=== PATIENT | male | born 1985 | race Two or more races ===

== ENCOUNTER 2016-06-20 08:56 | Emergency (ER) | payer BC ==
[~2016-06-20] VITALS: Ht 167.6 cm; Wt 81.6 kg
[2016-06-20 09:30] VITALS: BP 162/89
[2016-06-20] MEDS ORDERED: DIPHTH,PERTUSS(ACELL),TET TOX 0.5 ML DISP.SYRIN. VAX IM ONE (10:15)
[2016-06-20] MEDS ORDERED: LIDOCAINE 1% / SOD BICARB 8.4% 20 ML VIAL. IJ ONE (10:15)
--- NOTE | 2016-06-20 10:36 | PHYS DOC ---
Past Medical History Past Medical History: No Pertinent History Past Surgical History: No Surgical History Alcohol Use: Occasionally Drug Use: None Adult General Chief Complaint Chief Complaint: LACERATION/AVULSION HPI HPI Patient is a 31 year old male who presents with right elbow laceration. Patient states he accidentally cut his right elbow on a door. Review of Systems Review of Systems Constitutional: Denies fever or chills [] Eyes: Denies change in visual acuity, redness, or eye pain [] Musculoskeletal: Denies back pain or joint pain [] Integument: Right elbow laceration Neurologic: Denies headache, focal weakness or sensory changes [] Endocrine: Denies polyuria or polydipsia [] Current Medications Current Medications Current Medications Medications (Trade) Dose Ordered Sig/Ziggy Start Time Stop Time Status Last Admin Dose Admin Diphtheria/ Tetanus/Acell Pertussis (Boostrix) 0.5 ml ONCE ONCE 06/20/16 10:15 06/20/16 10:16 DC 06/20/16 10:16 0.5 ML Lidocaine/Sodium Bicarbonate (Buffered Lidocaine 1%) 20 ml 1X ONCE 06/20/16 10:15 06/20/16 10:16 DC 06/20/16 10:15 20 ML Allergies Allergies Allergies Coded Allergies Type Severity Reaction Last Updated Verified No Known Drug Allergies 06/20/16 No Physical Exam Physical Exam Constitutional: Well developed, well nourished, no acute distress, non-toxic appearance. [] HENT: Normocephalic, atraumatic, bilateral external ears normal, oropharynx moist, no oral exudates, nose normal. [] Abdomen: Bowel sounds normal, soft, no tenderness, no masses, no pulsatile masses. [] Skin: Right dorsal elbow with a laceration approximately 2 cm long, there is no tendon involvement. Full range of motion to the right elbow. Adequate flexion and extension of the right elbow. Adequate plantar flexion and dorsiflexion of the right forearm. +2 right radial pulse. Cap refill less than 2 seconds the right upper extremity. Adequate medial radial and ulnar sensation to the right forearm. Back: No tenderness, no CVA tenderness. [] Extremities: No tenderness, no cyanosis, no clubbing, ROM intact, no edema. [] Neurologic: Alert and oriented X 3, normal motor function, normal sensory function, no focal deficits noted. [] Psychologic: Affect normal, judgement normal, mood normal. [] Current Patient Data Vital Signs Vital Signs Date Time Temp Pulse Resp B/P Pulse Ox O2 Delivery O2 Flow Rate FiO2 06/20/16 09:30 98.6 111 20 97 Room Air 98.6 EKG EKG [] Radiology/Procedures Radiology/Procedures Indication: Right elbow laceration Procedure: The patient was placed in the appropriate position and anesthesia around the laceration was lidocaine with epinephrine. The area was then cleaned with 20 mL of normal saline and Betadine. The laceration was closed with 4 interrupted sutures using 4. 0 Ethilon. The wound area was then dressed with Band-Aid Total repaired wound length: Approximately 2 cm long Other Items: None The patient tolerated the procedure well Complications: None Course & Med Decision Making Course & Med Decision Making Pertinent Labs and Imaging studies reviewed. (See chart for details) Patient is in the ED with right elbow laceration that was closed by me as noted in procedures. He is to come back to the ED in 7-10 days for suture removal. He was provided wound care instructions as well as return precautions. He was given tetanus in the ED. Dragon Disclaimer Dragon Disclaimer This electronic medical record was generated, in whole or in part, using a voice recognition dictation system. Departure Departure Impression: Primary Impression: Laceration of elbow, right Disposition: 01 HOME, SELF-CARE Condition: STABLE Referrals: NO PCP (PCP) Follow-up with your doctor or the emergency room in 7-10 days for suture removal Patient Instructions: Laceration Care, Adult Additional Instructions: You have right elbow laceration, keep it clean and dry. Apply Neosporin to it twice a day. You can shower. Leave laceration open if it's not draining. Come back to the ED follow-up with your doctor in 7-10 days for suture removal. Problem Qualifiers Primary Impression: Laceration of elbow, right Encounter type: initial encounter Qualified Code: S51.011A - Laceration without foreign body of right elbow, initial encounter ARACELI GODWIN DRIER Jun 20, 2016 10:36
== END 2016-06-20 10:42 | disposition home or self-care (01) ==
LOC: ER 08:56
DX: S51.011A Laceration without foreign body of right elbow, initial encounter (principal); W23.0XXA Caught, crushed, jammed, or pinched between moving objects, initial encounter; Y93.89 Activity, other specified; Y92.89 Other specified places as the place of occurrence of the external cause; Y99.8 Other external cause status
CPT/HCPCS: 12001; 90471; 90715; 99283-25

== ENCOUNTER 2016-09-09 10:23 | Emergency (ER) | payer BC ==
[2016-09-09 10:25] VITALS: BP 127/84
--- NOTE | 2016-09-09 11:17 | PHYS DOC ---
Past Medical History Past Medical History: Kidney Stone Past Surgical History: No Surgical History Alcohol Use: Occasionally Drug Use: None Adult General Chief Complaint Chief Complaint: UPPER EXTREMITY PAIN [facility] HPI Patient is a 31 year old male presents to the emergency department stating that he has having left shoulder and left upper back pain and discomfort. Patient states that he moves 10 pound equipment on a daily basis as well as a repetitive motion. He denies any trauma or injury to the arm. He states on Thursday he woke up with the arm being numb and tingly has not followed asleep. He states that he has had increased pain and discomfort since that time. He denies any numbness or tingling in his hand and wrist area.. Equal strength noted bilaterally. Peripheral pulses 2+ cap refill brisk less than 2 seconds. Review of Systems Review of Systems Constitutional: Denies fever or chills [] Eyes: Denies change in visual acuity, redness, or eye pain [] HENT: Denies nasal congestion or sore throat [] Respiratory: Denies cough or shortness of breath [] Cardiovascular: No additional information not addressed in HPI [] GI: Denies abdominal pain, nausea, vomiting, bloody stools or diarrhea [] : Denies dysuria or hematuria [] Musculoskeletal: Right upper back, right shoulder pain and discomfort Integument: Denies rash or skin lesions [] Neurologic: Denies headache, focal weakness or sensory changes [] Endocrine: Denies polyuria or polydipsia [] Allergies Allergies Allergies Coded Allergies Type Severity Reaction Last Updated Verified No Known Drug Allergies 06/20/16 No Physical Exam Physical Exam Constitutional: Well developed, well nourished, no acute distress, non-toxic appearance. [] HENT: Normocephalic, atraumatic, bilateral external ears normal, oropharynx moist, no oral exudates, nose normal. [] Eyes: PERRLA, EOMI, conjunctiva normal, no discharge. [] Neck: Normal range of motion, no tenderness, supple, no stridor. [] Cardiovascular:Heart rate regular rhythm, no murmur [] Lungs & Thorax: Bilateral breath sounds clear to auscultation [] Skin: Warm, dry, no erythema, no rash. [] Back: No tenderness Extremities: Trapezoid tenderness noted in the right upper back, tenderness noted at the right rotator cuff area into the chest. Patient with full range of motion of the right shoulder. Peripheral pulses 2+ cap refill brisk less than 2 seconds. Good sensation noted bilaterally., no cyanosis, no clubbing, ROM intact , no edema. [] Neurologic: Alert and oriented X 3, normal motor function, normal sensory function, no focal deficits noted. [] Psychologic: Affect normal, judgement normal, mood normal. [] Current Patient Data Vital Signs Vital Signs Date Time Temp Pulse Resp B/P (MAP) Pulse Ox O2 Delivery O2 Flow Rate FiO2 09/09/16 10:25 97.6 96 18 97 Room Air 97.6 EKG EKG [] Radiology/Procedures Radiology/Procedures [address] [id number] IMAGING REPORT Signed PATIENT: BRENDAN CAMARENA ACCOUNT: [id number] : 1985 LOCATION: ER AGE: 31 SEX: M EXAM STATUS: REG ER ORD. PHYSICIAN: ERNESTINE MOCK MD REASON: rt shoulder pain PROCEDURE: SHOULDER 2+V RIGHT Indication pain for a week. No history of trauma. Internally and externally rotated views of the right shoulder were obtained as well as a Y view. No bony abnormality is seen DICTATED and SIGNED BY: MITCHEL NUNO MD DATE: 09/09/16 1117 CC: ERNESTINE MOCK MD; RANDOLPH THORNE APRN; NO PCP ~ [][address] [id number] IMAGING REPORT Signed PATIENT: BRENDAN CAMARENA ACCOUNT: [id number] : 1985 LOCATION: ER AGE: 31 SEX: M EXAM STATUS: REG ER ORD. PHYSICIAN: ERNESTINE MOCK MD REASON: pain PROCEDURE: VENOUS UPPER EXTREMITY RIGHT INDICATION: Right arm pain. COMPARISON: None. TECHNIQUE: Grayscale, color and spectral doppler ultrasound images were obtained of the right upper extremity venous vasculature. RIGHT: No thrombus identified in the right IJ, subclavian, cephalic, basilic, axillary, radial or ulnar veins. IMPRESSION: 1. No thrombus identified in deep venous system of right upper extremity. DICTATED and SIGNED BY: MARYCRUZ THOMPSON MD DATE: 09/09/16 5547 CC: ERNESTINE MOCK MD; RANDOLPH THORNE APRN; NO PCP ~ Course & Med Decision Making Course & Med Decision Making Pertinent Labs and Imaging studies reviewed. (See chart for details) X-rays and venous Doppler on the right arm was negative. X-rays of the right shoulder was negative as well. Patient will be placed in a sling with recommendations to take the arm out of the sling 5-6 times a day to do active range of motion. Patient was recommended to use ibuprofen for pain and discomfort ice packs as needed. Patient will be provided with orthopedic name and number to follow up with. Since symptoms to return back to emergency department as been provided. Patient agrees with discharge instructions treatment regimens and follow-up recommendations. [] Dragon Disclaimer Dragon Disclaimer This electronic medical record was generated, in whole or in part, using a voice recognition dictation system. Departure Departure Impression: Primary Impression: Right shoulder pain Disposition: 01 HOME, SELF-CARE Condition: STABLE Referrals: NO PCP (PCP) ZE KAUFMAN MD Patient Instructions: Arm Sling Use-Brief, Shoulder Pain, [id number] Additional Instructions: Activity as tolerated. Wear the sling to help with comfort. Take the arm out of the sling 6 times a day and do active range of motion. Ibuprofen for pain and discomfort. Follow-up with orthopedic in the next week. Return back to emergency department sign symptoms of become worse. RANDOLPH THORNE APRN Sep 09, 2016 11:17
--- NOTE | 2016-09-09 11:22 | RAD ---
Indication pain for a week. No history of trauma. Internally and externally rotated views of the right shoulder were obtained as well as a Y view. No bony abnormality is seen
--- NOTE | 2016-09-09 11:38 | RAD ---
INDICATION: Right arm pain. COMPARISON: None. TECHNIQUE: Grayscale, color and spectral doppler ultrasound images were obtained of the right upper extremity venous vasculature. RIGHT: No thrombus identified in the right IJ, subclavian, cephalic, basilic, axillary, radial or ulnar veins. IMPRESSION: 1. No thrombus identified in deep venous system of right upper extremity.
== END 2016-09-09 12:15 | disposition home or self-care (01) ==
LOC: ER 10:23
DX: M25.511 Pain in right shoulder (principal); Z87.442 Personal history of urinary calculi
CPT/HCPCS: 73030; 93971; 99284

== ENCOUNTER 2016-09-16 06:11 | Emergency (ER) | payer BC ==
[~2016-09-16] VITALS: Ht 170.2 cm; Wt 81.6 kg
[2016-09-16 06:49] LABS: POTASSIUM ISTAT 3.9 mmol/L (3.5-5.0)
[2016-09-16] MEDS ORDERED: KETOROLAC TROMETHAMINE 30 MG/ML INJ. IV ONE (07:00)
[2016-09-16] MEDS ORDERED: MORPHINE SULFATE 4 MG/ML DISP.SYRIN. IV ONE ×2 (07:00→08:00)
[2016-09-16] MEDS ORDERED: IV NORMAL SALINE 1000ML BAG 1,000 ML IV ONE ×2 (07:00→07:45)
[2016-09-16] MEDS ORDERED: ONDANSETRON PF 4 MG/2 ML VIAL. IV ONE (07:00)
[2016-09-16] MEDS ORDERED: TAMSULOSIN 0.4 MG CAP.ER.24H. PO ONE (07:00)
--- NOTE | 2016-09-16 07:14 | PHYS DOC ---
Past Medical History Past Medical History: Kidney Stone Past Surgical History: No Surgical History Alcohol Use: Occasionally Drug Use: None Adult General Chief Complaint Chief Complaint: ABDOMINAL PAIN HPI HPI Patient is a 31 year old male who presents with abdominal pain. Started yesterday abruptly and located on left lower abdomen and radiated to the testicles. Similar to pain he's had in the past when diagnosed with kidney stones. No prior interventions required. No vomiting reported, no fevers. The pain awoke him from sleep again this morning at 4am and was very intense. It has since let up some but still present. Review of Systems Review of Systems Constitutional: Denies fever or chills Eyes: Denies eye pain or discharge HENT: Denies nasal congestion or sore throat Respiratory: Denies cough or shortness of breath [] Cardiovascular: Denies chest pain or edema GI: per hpi : Denies dysuria , reports hematuria Musculoskeletal: Denies back pain Extremities: denies joint pain [] Integument: Denies rash Neurologic: Denies headache, denies focal weakness , denies sensory changes [] Current Medications Current Medications Current Medications Medications (Trade) Dose Ordered Sig/Ziggy Start Time Stop Time Status Last Admin Dose Admin Ketorolac Tromethamine (Toradol) 30 mg 1X ONCE 09/16/16 07:00 09/16/16 07:01 DC 09/16/16 06:41 30 MG Morphine Sulfate 4 mg 1X ONCE 09/16/16 08:00 09/16/16 08:01 DC 09/16/16 07:32 4 MG Ondansetron HCl (Zofran) 4 mg 1X ONCE 09/16/16 07:00 09/16/16 07:01 DC 09/16/16 06:41 4 MG Sodium Chloride 1,000 ml @ 1,000 mls/hr 1X ONCE 09/16/16 07:45 09/16/16 08:44 DC 09/16/16 08:26 1,000 MLS/HR Tamsulosin HCl (Flomax) 0.4 mg 1X ONCE 09/16/16 07:00 09/16/16 07:01 DC 09/16/16 06:41 0.4 MG Allergies Allergies Allergies Coded Allergies Type Severity Reaction Last Updated Verified No Known Drug Allergies 06/20/16 No Physical Exam Physical Exam Constitutional: Well developed, well nourished HENT: Normocephalic, atraumatic, bilateral external ears normal, oropharynx moist Eyes: PERRLA, EOMI, conjunctiva normal, no discharge. Neck: Normal range of motion, supple, no stridor. Cardiovascular:Heart rate regular with regular rhythm Lungs & Thorax: Bilateral breath sounds clear to auscultation, no wheeze, crackles or rhonchi appreciated Abdomen: non distended, no guarding, no peritoneal signs, ttp left mid and lower quadrant , normal bowel sounds, negative mcburneys Skin: Warm, dry Back: No tenderness Extremities: No tenderness, no cyanosis, no edema. [] Neurologic: Alert and oriented X 3, normal motor function, normal sensory function, no focal deficits noted. [] Current Patient Data Vital Signs Vital Signs Date Time Temp Pulse Resp B/P (MAP) Pulse Ox O2 Delivery O2 Flow Rate FiO2 09/16/16 09:20 84 16 96 Room Air 09/16/16 06:20 98.2 98.2 Lab Values Laboratory Tests Test 09/16/16 06:37 09/16/16 09:05 POC Hemoglobin 17.3 g/dL (14-18) POC Hematocrit 51 % (37-52) POC Sodium 139 mmol/L (135-145) POC Potassium 3.9 mmol/L (3.5-5.0) POC Chloride 103 mmol/L (98-110) POC Total CO2 26 mmol/L (23-32) Anion Gap 15 mmol/L (6-14) H POC Blood Urea Nitrogen 16 mg/dL (8-26) POC Creatinine 1.0 mg/dL (0.5-1.4) Glucose Level 98 mg/dL (70-99) POC Ionized Calcium (Angelica) 1.13 mmol/L (1.13-1.32) Urine Collection Type U cath Urine Color Shira Urine Clarity Clear Urine pH 6.0 Urine Specific Termo >=1.030 Urine Protein 30 mg/dL (NEG-TRACE) Urine Glucose (UA) Negative mg/dL (NEG) Urine Ketones (Stick) Negative mg/dL (NEG) Urine Blood Negative (NEG) Urine Nitrite Negative (NEG) Urine Bilirubin Negative (NEG) Urine Urobilinogen Dipstick 0.2 mg/dL (0.2 mg/dL) Urine Leukocyte Esterase Negative (NEG) Urine RBC 3-5 /HPF (0-2) Urine WBC 1-4 /HPF (0-4) Urine Squamous Epithelial Cells Few /LPF Urine Renal Epithelial Cells Mod /LPF Urine Bacteria Few /HPF (0-FEW) Urine Mucus Marked /LPF Laboratory Tests 09/16/16 06:37 EKG EKG [] Radiology/Procedures Radiology/Procedures [] Course & Med Decision Making Course & Med Decision Making Pertinent Labs and Imaging studies reviewed. (See chart for details) Pt was given IV toradol, morphine, fluids, zofran and flomax. As pt has had similar episodes in the past and this feels similar, radiographs not clearly indicated as intervention not required in the past. UA and istat BMP ordered. Pt received second dose of IV morphine. UA suspect for possible infection. Treated with flomax, RX for same, cipro, ibuprofen, work note given. Referred to urology. Dagoberto Disclaimer Dagoberto Disclaimer This electronic medical record was generated, in whole or in part, using a voice recognition dictation system. Departure Departure Impression: Primary Impression: Nephrolithiasis Additional Impression: Hematuria Referrals: NO PCP (PCP) Scripts Ibuprofen (IBUPROFEN) 800 Mg Tablet 800 MG PO PRN TID Y for PAIN, #20 TAB take with food or milk to avoid upsetting stomach Prov: JAMIE ALFRED MD 09/16/16 Ciprofloxacin Hcl (CIPRO) 500 Mg Tablet 1 TAB PO BID, #14 TAB Prov: JAMIE ALFRED MD 09/16/16 Tamsulosin Hcl (FLOMAX) 0.4 Mg Cap.er.24h 1 CAP PO DAILY, #10 CAP 0 Refills Prov: JAMIE ALFRED MD 09/16/16 Problem Qualifiers JAMIE ALFRED MD Sep 16, 2016 07:14
[2016-09-16 08:20] VITALS: BP 132/79
[2016-09-16 09:18] LABS: BILIRUBIN,URINE NEGATIVE (NEG); GLUCOSE,URINE NEGATIVE (NEG); NITRITE,URINE NEGATIVE (NEG); PROTEIN,URINE 30 mg/dL (NEG-TRACE); UROBILINOGEN,URINE 0.2 mg/dL (0.2 mg/dL)
[2016-09-16 09:37] LABS: BACTERIA,URINE FEW /HPF (0-FEW); SQUAMOUS EPITHELIAL CELL,UR FEW /LPF
[2016-09-16] MEDS ORDERED: TAMS0.4C97 PO (09:45)
[2016-09-16] MEDS ORDERED: IBUP-1060 PO (09:45)
[2016-09-16] MEDS ORDERED: CIPR500T94 PO (09:45)
== END 2016-09-16 09:58 | disposition home or self-care (01) ==
LOC: ER 06:11
DX: N20.0 Calculus of kidney (principal); R31.9 Hematuria, unspecified; Z87.442 Personal history of urinary calculi
CPT/HCPCS: 80047; 81001; 96361; 96374; 96375; 96376; 99285; J1885; J2270; J2405; J7030